=== PATIENT | female | born 1990 | race Caucasian/White ===

== ENCOUNTER 2018-12-10 18:38 | Emergency (ER) | payer SELFPAY ==
[~2018-12-10] VITALS: Ht 160 cm; Wt 45.5 kg
[2018-12-10 19:20] VITALS: BP 121/86
== END 2018-12-10 19:25 | disposition home or self-care (01) ==
LOC: EDBD 18:39 → EMS 18:39
DX: F10.129 Alcohol abuse with intoxication, unspecified (principal); Y90.9 Presence of alcohol in blood, level not specified